=== PATIENT | female | born 1950 | race Caucasian/White ===

== ENCOUNTER → 2017-08-27 | Outpatient (CLI) | payer MEDICARE ==
--- NOTE | 2017-08-28 10:10 | MM ---
Reason for exam: screening (asymptomatic). Last mammogram was performed 3 years and 7 months ago. History: Patient is postmenopausal. Benign stereotactic core biopsy of the left breast, February 28, 2003. Core biopsy of the left breast. Excisional biopsy of the right breast. Physical Findings: A clinical breast exam by your physician is recommended on an annual basis and results should be correlated with mammographic findings. MG Screening Mammo w CAD Bilateral CC and MLO view(s) were taken. Prior study comparison: February 08, 2014, bilateral MG screening mammo w CAD. February 15, 2003, left breast special view mammogram. The breast tissue is almost entirely fat. No suspicious abnormality. Left breast biopsy marker is noted. No significant changes when compared with prior studies. ASSESSMENT: Negative, BI-RAD 1 RECOMMENDATION: Routine screening mammogram of both breasts in 1 year.
== END | disposition home or self-care (01) ==
LOC: RADMAMWWP 15:18
PROVIDERS: ATTEND Family Medicine
DX: Z12.31 Encounter for screening mammogram for malignant neoplasm of breast (principal)
CPT/HCPCS: 77067

== ENCOUNTER → 2017-08-27 | Outpatient (CLI) | payer MEDICARE ==
--- NOTE | 2017-08-27 15:50 | US ---
EXAMINATION TYPE: US venous doppler duplex LE LT DATE OF EXAM: 08/27/2017 3:37 PM COMPARISON: NONE CLINICAL HISTORY: 67-year-old female M79.662 Pain in left leg. Pt having pain left leg s/p fall 6-8 w eeks ago SIDE PERFORMED: Left TECHNIQUE: The lower extremity deep venous system is examined utilizing real time linear array sonog bernadine with graded compression, doppler sonography and color-flow sonography. FINDINGS: VESSELS IMAGED: External Iliac Vein (EIV) Common Femoral Vein Deep Femoral Vein Greater Saphenous Vein * Femoral Vein Popliteal Vein Small Saphenous Vein * Proximal Calf Veins (* superficial vessels) Left Leg: Negative for DVT IMPRESSION: No evidence for DVT within the left lower extremity imaged from the groin to the upper calf. If there is a persistent or enlarging palpable abnormality, soft tissue ultrasound can be performed.
--- NOTE | 2017-08-27 16:06 | US ---
EXAMINATION TYPE: US extremity nonvasculr mass LT DATE OF EXAM: 08/27/2017 COMPARISON: NONE CLINICAL HISTORY: 67-year-old female M79.662 PAIN IN LEFT LEG. Pt having palpable lump left anterior urena s/p fall 6-8 weeks ago TECHNIQUE: Multiple sonographic images at the site of palpable abnormality anterior left mid leg. FINDINGS: There is a focal minimally complex collection measuring 4.5 x 1.5 x 4.1 cm along the pretibial region. Thickened septation is present along the mid aspect that has some vascularity. Probable blood flow in the adjacent soft tissues. AIR SHOVEL OPERATOR NOTES: In area of pt's palpable there is a complex area= 4.5 x 1.5 x 4.1 cm/ there is blood flow in center where solid tissue is present IMPRESSION: Minimally complex fluid collection measuring 4.5 x 4.1 cm involving the mid leg pretibial region at the site of palpable abnormality. Suspected chronic hematoma. As there is some questionable septation/nodularity with associated blood flow, close clinical follow-up to ensure gradual involution is recommended. If the finding persists, follow-up ultrasound should be performed. ALAN
== END | disposition home or self-care (01) ==
LOC: RADUSWWP 15:02
PROVIDERS: ATTEND Family Medicine
DX: M79.662 Pain in left lower leg (principal)

== ENCOUNTER → 2017-10-06 | Outpatient (CLI) | payer MEDICARE ==
--- NOTE | 2017-10-07 18:24 | ECHOF ---
Referral Reason:R01.1 Cardiac Murmur MEASUREMENTS -------- HEIGHT: 162.6 cm WEIGHT: 131.5 kg BP: 211/95 RVIDd: 3.3 cm (< 3.3) IVSd: 1.3 cm (0.6 - 1.1) LVIDd: 4.9 cm (3.9 - 5.3) LVPWd: 1.2 cm (0.6 - 1.1) IVSs: 1.6 cm LVIDs: 3.2 cm LVPWs: 1.6 cm LAESV Index (A-L): 14.80 ml/m Ao Diam: 3.3 cm (2.0 - 3.7) AV Cusp: 1.9 cm (1.5 - 2.6) LA Diam: 4.2 cm (2.7 - 3.8) MV EXCURSION: 16.659 mm (> 18.000) MV EF SLOPE: 41 mm/s (70 - 150) EPSS: 1.0 cm MV E Pelon: 1.02 m/s MV DecT: 585 ms MV A Pelon: 1.74 m/s MV E/A Ratio: 0.59 AV maxP.24 mmHg AV meanP.14 mmHg RAP: 5.00 mmHg RVSP: 10.99 mmHg FINDINGS -------- Sinus rhythm. This was a technically adequate study. The left ventricular size is normal. There is mild concentric left ventricular hypertrophy. Overa ll left ventricular systolic function is normal with, an EF between 55 - 60 %. The right ventricle is mildly enlarged. Normal LA size by volume 22+/-6 ml/m2. RA appears enlarged. Aortic valve is trileaflet and is mildly thickened. Trace amount of aortic regurgitation. There is no evidence of aortic stenosis. The mitral valve leaflets are mildly thickened. Mild mitral annular calcification present. There is trace to mild mitral regurgitation. Trace tricuspid regurgitation present. Right ventricular systolic pressure is normal at < 35 mmHg. There is no evidence of pulmonary hypertension. The pulmonic valve was not well visualized. The aortic root size is normal. Normal inferior vena cava with normal inspiratory collapse consistent with estimated right atrial pre ssure of 5 mmHg. There is no pericardial effusion. CONCLUSIONS -------- 1. Sinus rhythm. 2. This was a technically adequate study. 3. The left ventricular size is normal. 4. There is mild concentric left ventricular hypertrophy. 5. Overall left ventricular systolic function is normal with, an EF between 55 - 60 %. 6. The right ventricle is mildly enlarged. 7. Normal LA size by volume 22+/-6 ml/m2. 8. RA appears enlarged. 9. Aortic valve is trileaflet and is mildly thickened. 10. Trace amount of aortic regurgitation. 11. The mitral valve leaflets are mildly thickened. 12. Mild mitral annular calcification present. 13. There is trace to mild mitral regurgitation. 14. Trace tricuspid regurgitation present. 15. Right ventricular systolic pressure is normal at < 35 mmHg. 16. There is no evidence of pulmonary hypertension. 17. The pulmonic valve was not well visualized. 18. The aortic root size is normal. 19. There is no pericardial effusion. THERMOMETER TESTER: Zain Waller RDCS
== END | disposition home or self-care (01) ==
LOC: RADECHMAIN 13:16
PROVIDERS: ATTEND Nurse Practitioner
DX: I08.0 Rheumatic disorders of both mitral and aortic valves (principal)
CPT/HCPCS: 93306

== ENCOUNTER → 2022-12-27 | Outpatient (CLI) | payer MEDICARE ==
--- NOTE | 2022-12-27 15:53 | BD ---
EXAMINATION TYPE: Axial Bone Density DATE OF EXAM: 12/27/2022 CLINICAL HISTORY: 72 years old Female. ICD-10 CODE: N95.1 MENOPAUSAL STATE Height: 63in Weight: 248lb FRAX RISK QUESTIONS: History of Fracture in Adulthood: yes Secondary Osteoporosis: RISK FACTORS HISTORY OF: Active: yes Postmenopausal woman: yes Lost more than 2 inches in height since high school: yes MEDICATIONS: Additional Medications: vitamin d Additional History: foot fracture EXAM MEASUREMENTS: Bone mineral densitometry was performed using the [employer] System. Bone mineral density as measured about the Lumbar spine is: ----- L1-L4(G/cm2): 1.315 T Score Values are as follows: ----- L1: 0.0 ----- L2: 1.2 ----- L3: 1.8 ----- L4: 1.3 ----- L1-L4: 1.1 Z Score Values are as follows: ----- L1: 0.6 ----- L2: 1.7 ----- L3: 2.4 ----- L4: 1.9 ----- L1-L4: 1.7 First dexa at [facility] Bone mineral density about the R hip (g/cm2): 0.952 Bone mineral density about the L hip (g/cm2): 0.921 T Score values are as follows: -----R Neck: -1.2 -----L Neck: -1.5 -----R Total: -0.4 -----L Total: -0.7 Z Score values are as follows: -----R Neck: -0.1 -----L Neck: -0.4 -----R Total: 0.4 -----L Total: 0.1 FRAX%s: The graph provided illustrates a 14.3% chance for a major osteoporotic fx and a 2.2% chance f or the hips probability for fx in 10 years time. IMPRESSION: Osteopenia (T Score between -2.5 and -1) femoral neck level in both hips. There is slightly increased risk of fracture and the patient may be considered for treatment. Re-Screen 2-5 years. NOTE: T-SCORE=SD OF THE YOUNG ADULT MEAN.
--- NOTE | 2022-12-30 09:22 | MM ---
Reason for Exam: Screening (asymptomatic). Last mammogram was performed 5 year(s) and 5 month(s) ago. Patient History: Menarche at age 12. First Full-Term at age 19. Postmenopausal. Core Biopsy on the Left side. Excisional Biopsy on the Right side. 02/28/2003, Benign Stereotactic Core Biopsy on the left side. Risk Values: Yessica 5 year model risk: 2.4%. NCI Lifetime model risk: 5.8%. Prior Study Comparison: 02/15/2003 Left Special View Mammogram, [facility]. 02/08/2014 Bilateral Screening Mammogram, [facility]. 08/27/2017 Bilateral Screening Mammogram, [facility]. Tissue Density: There are scattered fibroglandular densities. Findings: Analyzed By CAD. There is no suspicious group of microcalcifications or new suspicious mass in either breast. Biopsy clip within the left breast. Overall Assessment: Benign, BI-RAD 2 Management: Screening Mammogram of both breasts in 1 year. A clinical breast exam by your physician is recommended on an annual basis and results should be correlated with mammographic findings. Electronically signed and approved by: Jose David Rice D.O.
== END | disposition home or self-care (01) ==
LOC: RADMAMWWP 14:56
PROVIDERS: ATTEND Family Medicine
DX: Z12.31 Encounter for screening mammogram for malignant neoplasm of breast (principal); M85.89 Other specified disorders of bone density and structure, multiple sites; Z78.0 Asymptomatic menopausal state
CPT/HCPCS: 77063; 77067; 77080

== ENCOUNTER → 2023-01-09 | Outpatient (CLI) | payer MEDICARE ==
--- NOTE | 2023-01-10 10:55 | CA ---
Transthoracic Echo Report Name: Reena Street Age: 72 Gender: F : 1950 Exam Date: 01/09/2023 13:05 Exam Location: [place] [facility] Ht (in): 66 Wt (lb): 244 Ordering Physician: Jim Garner MD Attending/Referring Phys: Xiao Najera Bible Reader Wanda Muller RDCS Procedure CPT: Indications: R01.1 CARDIAC MURMUR, UNSPECIFIED Cardiac Hx: Technical Quality: Fair Contrast 1: Total Dose (mL): Contrast 2: Total Dose (mL): MEASUREMENTS (Male / Female) Normal Values 2D ECHO LV Diastolic Diameter PLAX 4.2 cm 4.2 - 5.9 / 3.9 - 5.3 cm LV Systolic Diameter PLAX 2.8 cm IVS Diastolic Thickness 1.5 cm 0.6 - 1.0 / 0.6 - 0.9 cm LVPW Diastolic Thickness 1.5 cm 0.6 - 1.0 / 0.6 - 0.9 cm LV Relative Wall Thickness 0.7 RV Internal Dim ED PLAX 2.8 cm LA Volume 88.1 cm??? 18 - 58 / 22 - 52 cm??? M-MODE Aortic Root Diameter MM 3.3 cm LA Systolic Diameter MM 4.4 cm LA Ao Ratio MM 1.4 AV Cusp Separation MM 1.6 cm DOPPLER AV Peak Velocity 263.2 cm/s AV Peak Gradient 27.7 mmHg AV Mean Velocity 176.1 cm/s AV Mean Gradient 14.3 mmHg AV Velocity Time Integral 50.1 cm LVOT Peak Velocity 122.0 cm/s LVOT Peak Gradient 6.0 mmHg LVOT Velocity Time Integral 24.7 cm MV Peak Velocity 170.0 cm/s MV Peak Gradient 11.6 mmHg MV Mean Velocity 92.5 cm/s MV Mean Gradient 4.1 mmHg MV Velocity Time Integral 41.9 cm MV Area PHT 1.4 cm??? Mitral E Point Velocity 86.1 cm/s Mitral A Point Velocity 149.2 cm/s Mitral E to A Ratio 0.6 MV Deceleration Time 559.0 ms MV E' Velocity 8.2 cm/s Mitral E to MV E' Ratio 10.5 TR Peak Velocity 269.5 cm/s TR Peak Gradient 29.0 mmHg Right Ventricular Systolic Press 33.4 mmHg FINDINGS Left Ventricle Moderately increased left ventricular wall thickness. Left ventricular cavity size normal. Normal left ventricular systolic function with no obvious regional wall motion abnormalities. Left ventricular ejection fraction is estimated at 55-60%. Right Ventricle Normal right ventricular size and function. Right ventricular systolic pressure within normal limits. Right Atrium Normal right atrial size. Left Atrium Severely increased left atrial volume. Mildly increased left atrial area. Mitral Valve Mitral valve thickened. Severe mitral annular calcification. Mild mitral stenosis. Mild mitral regurgitation. Aortic Valve Trileaflet aortic valve. Mild aortic stenosis with a peak gradient of 28 mmHg and a mean gradient of 14 mmHg. Tricuspid Valve Structurally normal tricuspid valve. Mild tricuspid regurgitation. Pulmonic Valve Structurally normal pulmonic valve. Pericardium No pericardial effusion. Aorta Normal size aortic root and proximal ascending aorta. CONCLUSIONS 1. Normal ventricle size and systolic function 2. Severe mitral annulus calcification with mild mitral regurgitation 3. Mild aortic stenosis 4. Mild tricuspid regurgitation with no evidence of pulmonary hypertension Previewed by: Dr. Jerrell Wilkins MD (Electronically Signed) Final Date: 10 January 2023 10:54
== END | disposition home or self-care (01) ==
LOC: RADECHMAIN 13:01
PROVIDERS: ATTEND Family Medicine
DX: I08.3 Combined rheumatic disorders of mitral, aortic and tricuspid valves (principal); R01.1 Cardiac murmur, unspecified
CPT/HCPCS: 93306

== ENCOUNTER → 2024-04-29 | Outpatient (CLI) | payer MEDICARE ==
--- NOTE | 2024-04-29 12:04 | US ---
EXAMINATION TYPE: US abdomen complete DATE OF EXAM: 04/29/2024 COMPARISON: NONE CLINICAL INDICATION: Female, 74 years old with history of R63.4 WT LOSS R74.8 ABNORMAL LEVELS OF OTHE R SERUM; Abnormal labs. Weight loss- 115 lbs in 1.5 years with not trying. GB removed. Patient ates having an umbilical rupture. TECHNIQUE: Grayscale and color Doppler imaging of the abdomen was performed. FINDINGS: EXAM MEASUREMENTS: Liver Length: 16.0 cm CBD: 1.3 cm Spleen: 13.8 cm Right Kidney: 10.4 x 5.9 x 5.5 cm Left Kidney: 10.8 x 5.4 x 4.5 cm Pancreas: wnl Liver: wnl as visualized Gallbladder: Surgically absent Evidence for sonographic Reyes's sign: neg CBD: Dilated Spleen: Enlarged in size Right Kidney: No hydronephrosis or masses seen Left Kidney: Large vascular mass in upper medial pole = 10.0 x 10.2 x 7.7 cm Upper IVC: wnl Abd Aorta: Distal obscured by overlying bowel gas, No AAA visualized with portions seen Umbilical hernia visualized with movement seen with valsalva IMPRESSION: 1. Large vascular left renal mass suspicious for malignancy measuring 10.2 cm similar to recent CT sc an. 2. There is a stable umbilical hernia compared to recent CT scan. 3. Post cholecystectomy with CBD dilated measuring 1.3 cm. Correlate clinically. [facility], , 04/29/2024 12:02 PM
--- NOTE | 2024-04-29 12:06 | CT ---
EXAMINATION TYPE: CT abdomen pelvis wo con DATE OF EXAM: 04/29/2024 HISTORY: abdominal pain, 100 lbs weight loss x [address] DLP: 798.3 mGycm. Automated Exposure Control for Dose Reduction was Utilized. TECHNIQUE: CT scan of the abdomen and pelvis is performed without oral or IV contrast. COMPARISON: None FINDINGS: Within the limitations of a non-contrast study, the following observations are made. The lungs are clear. There is moderate cardiomegaly and a small to moderate pericardial effusion. There is surgical absence of the gallbladder. There is no biliary ductal dilatation. There is no enlargement of the liver or pancreas. There is mild splenomegaly. There are no adrenal ma sses. There is a 12.3 x 9.4 cm mass of the left kidney with a few small calcifications centrally. The findi ng is highly suspicious for renal cell carcinoma. The right kidney is unremarkable. The caliber of the abdominal aorta is normal. There is no definite retroperitoneal adenopathy. There is no free intraperitoneal air or fluid. The bowel loops are normal in caliber and is no evidence of obstruction. There is moderate diverticul osis of the sigmoid colon without CT evidence of diverticulitis. There is no pelvic mass or adenopathy. There is surgical absence of the uterus. There are no focal osseous abnormalities. There is a 5.1 cm periumbilical hernia containing fat but no bowel. IMPRESSION: 1. 12.3 x 9.4 cm left renal mass highly suspicious for renal cell carcinoma and further workup is war ranted. 2. Mild splenomegaly. 3. Mild to moderate cardiomegaly with mild to moderate pericardial effusion. [facility], , 04/29/2024 12:04 PM
== END | disposition home or self-care (01) ==
LOC: RADUSWWP 10:28
PROVIDERS: ATTEND Family Medicine
DX: I31.39 Other pericardial effusion (noninflammatory) (principal); K42.9 Umbilical hernia without obstruction or gangrene; N28.89 Other specified disorders of kidney and ureter; R63.4 Abnormal weight loss; R74.8 Abnormal levels of other serum enzymes; R79.89 Other specified abnormal findings of blood chemistry; I51.7 Cardiomegaly; Z90.49 Acquired absence of other specified parts of digestive tract
CPT/HCPCS: 74176; 76700